=== PATIENT | male | born 1945 | race Caucasian/White ===

== ENCOUNTER 2016-04-23 21:46 | Emergency (ER) | payer SELFPAY ==
[~2016-04-23] VITALS: Ht 190.5 cm; Wt 80.5 kg
--- NOTE | 2016-04-23 22:14 | RAD ---
PROCEDURE CT scan of the head without contrast 04/23/2016 HISTORY Altered mental status with right-sided weakness and aphasia since 9 p.m. TECHNIQUE Unenhanced contiguous, 5 millimeter axial sections were obtained through the head. One or more of the following individualized dose reduction techniques were utilized for this study: 1. Automated exposure control. 2. Adjustment of the mA and/or kV according to patient size. 3. Use of iterative reconstruction technique. FINDINGS There is generalized parenchymal atrophy. No acute parenchymal abnormality is seen. No extra-axial fluid collection is noted. Increased density is seen within the mid/distal left middle cerebral artery (M2/3 segments) when compared to the right within the left sylvian fissure consistent with a hyperdense MCA sign. 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 There is no CT evidence intraparenchymal hemorrhage. No skull fracture is seen. 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 These findings were discussed with Dr. Simon of the emergency department at 2158 hours. Electronically signed by: Logan Jackson MD (Apr 23, 2016 22:12:51)
[2016-04-23 22:39] VITALS: BP 138/78
[2016-04-23 22:48] LABS: BASO % 0 % (0-3); EOS % 1 % (0-3); HEMATOCRIT 41.5 % (39.0-53.0); HEMOGLOBIN 13.8 g/dL (13.0-17.5); LYMPH # 2.4 x10^3/uL (1.0-4.8); LYMPH % 33 % (24-48); MEAN CORPUSCULAR HEMOGLOBIN 31 pg (25-35); MEAN CORPUSCULAR HGB CONC 33 g/dL (31-37); MEAN CORPUSCULAR VOLUME 93 fL (79-100); MONO % 7 % (0-9); NEUT % 59 % (31-73); PLATELET COUNT 178 x10^3/uL (140-400); RED BLOOD COUNT 4.46 x10^6/uL (4.30-5.70); RED CELL DISTRIBUTION WIDTH 12.7 % (11.5-14.5); WHITE BLOOD COUNT 7.5 x10^3/uL (4.0-11.0)
[2016-04-23 22:51] LABS: CALCIUM 9.2 mg/dL (8.5-10.1); GFR 74.3; POTASSIUM 4.3 mmol/L (3.5-5.1)
[2016-04-23 22:57] LABS: ALBUMIN 3.9 g/dL (3.4-5.0); ALBUMIN/GLOBULIN RATIO 1.3 (1.0-1.7); TOTAL BILIRUBIN 1.3 mg/dL (0.2-1.0); TOTAL PROTEIN 6.9 g/dL (6.4-8.2)
[2016-04-23 22:57] LABS: INR 1.3 (0.8-1.1); PROTHROMBIN TIME PATIENT 15.6 SEC (11.7-14.0)
--- NOTE | 2016-04-23 23:24 | PHYS DOC ---
Past Medical History Past Medical History: Hypertension, DC Past Surgical History: Other Additional Past Surgical Histo: HERNIA REPAIR Alcohol Use: Rarely Drug Use: None Adult General Chief Complaint Chief Complaint: NEURO SYMPTOMS/DEFICITS HPI HPI Patient is a 70 year old gentleman who has history significant for recent myocardial infarction and was treated at [facility] for this. According to the the patient had a cardiac catheter performed which revealed a lesion in what appears to be his left anterior descending artery however it with a distal lesion, it was 100% obstructed, and no stent or angioplasty was performed at that time. According to the the patient was sent home on Coumadin and Plavix. Today the patient presents to the ER secondary to an episode of right-sided upper extremity facility with right facial droop but occurred approximately 9 PM. Patient's last known well time was 9 PM. Patient's reports that there was dinnertable and she started having a conversation with him and he was not responding. She reports that she went up to the patient he was not following any commands. She reports that he was staring off into space and not responding to her verbally or physically. She reports his face had a droop on the right side and his right arm had flopped to the side. She reports that he started to fall over to the right side and he was caught by her and her sister. They called EMS and EMS arrived and brought him to [facility]. Upon arrival to the ER the patient again continued to be alert awake however not responding to external stimuli. Patient was nonverbal and was not following any commands. Patient's neuro exam revealed a an NIH score of 15. Patient had 5 out of 5 strength in his upper and lower extremities and the reports upon arrival to the ER his facial droop resolved completely. Patient does have a history of hypertension. reports no history of diabetes liver longer kidney problems. No history of cancer, strokes, seizures in the past. Patient does not smoke drink or do any drugs. Patient is not allergic to any medications. Patient is on Coumadin Plavix and lisinopril. I received a call from the radiologist reporting that the patient has a thrombus in his left MCA. There was no evidence of stroke or otherwise. We immediately contacted [facility] to transfer for further evaluation by stroke center. I spoke to Dr. Paulino and Dr. Lacey, and they've graciously accepted further care of this patient and agreed to allow transfer to their facility for definitive management and possible thrombolytic therapy. At the time of the conversation was [facility] the patient's labs were not back and the INR was not yet known. Patient's INR the ER after the patient was discharged with 1.3 this was relayed to the nursing team at [facility] by our nurse here. Patient's Accu-Chek was 118. Patient's blood pressure upon arrival was 160/100 by EMS however her blood pressure here was 127/76. Medical care time of 35 minutes were utilized for treatment and management of the patient's acute embolic stroke. Patient has a thrombus in his left MCA. Patient was transferred emergently to [facility] for definitive management of his stroke. Review of Systems Review of Systems History very difficult to obtain secondary to patient non-verbal. Review of systems obtained from . Constitutional: Denies fever or chills [] Eyes: Denies change in visual acuity, redness, or eye pain [] HENT: Denies nasal congestion or sore throat [] Respiratory: Denies cough or shortness of breath [] Cardiovascular: No additional information not addressed in HPI [] GI: Denies abdominal pain, nausea, vomiting, bloody stools or diarrhea [] All other review of systems negative except as documented. Allergies Allergies Allergies Coded Allergies Type Severity Reaction Last Updated Verified No Known Drug Allergies 04/23/16 No Physical Exam Physical Exam Constitutional: Well developed, well nourished, no acute distress, non-toxic appearance. [] HENT: Normocephalic, atraumatic, bilateral external ears normal, oropharynx moist, no oral exudates, nose normal. [] Eyes: PERRLA, EOMI, conjunctiva normal, no discharge. [] Neck: Grossly Normal range of motion, no tenderness, supple, no stridor. [] Cardiovascular:Heart rate regular rhythm Lungs & Thorax: Bilateral breath sounds clear to auscultation [] Abdomen: Bowel sounds normal, soft, no tenderness, no masses, no pulsatile masses. [] Skin: Warm, dry, no erythema, no rash. [] Extremities: No tenderness, no cyanosis, no clubbing, ROM intact, no edema. [] Neurologic: Alert and awake. Full neuro exam limited secondary to patient not responsive to verbal instructions. Patient staring off appears somewhat confused but not verbalizing any complaints of not following any commands. Patient does have 5 out of 5 strength in his upper and lower extremities assessed by resistance. Psychologic: Unable to assess Current Patient Data Vital Signs Vital Signs Date Time Temp Pulse Resp B/P Pulse Ox O2 Delivery O2 Flow Rate FiO2 04/23/16 21:46 97.8 61 16 138/78 100 Room Air 97.8 Lab Values Laboratory Tests Test 04/23/16 22:02 04/23/16 22:30 04/23/16 22:45 Glucose (Fingerstick) 101mg/dL (70-99) H White Blood Count 7.5x10^3/uL (4.0-11.0) Red Blood Count 4.46x10^6/uL (4.30-5.70) Hemoglobin 13.8g/dL (13.0-17.5) Hematocrit 41.5% (39.0-53.0) Mean Corpuscular Volume 93fL (79-100) Mean Corpuscular Hemoglobin 31pg (25-35) Mean Corpuscular Hemoglobin Concent 33g/dL (31-37) Red Cell Distribution Width 12.7% (11.5-14.5) Platelet Count 178x10^3/uL (140-400) Neutrophils (%) (Auto) 59% (31-73) Lymphocytes (%) (Auto) 33% (24-48) Monocytes (%) (Auto) 7% (0-9) Eosinophils (%) (Auto) 1% (0-3) Basophils (%) (Auto) 0% (0-3) Neutrophils # (Auto) 4.4x10^3uL (1.8-7.7) Lymphocytes # (Auto) 2.4x10^3/uL (1.0-4.8) Monocytes # (Auto) 0.5x10^3/uL (0.0-1.1) Eosinophils # (Auto) 0.1x10^3/uL (0.0-0.7) Basophils # (Auto) 0.0x10^3/uL (0.0-0.2) Sodium Level 146mmol/L (136-145) H Potassium Level 4.3mmol/L (3.5-5.1) Chloride Level 107mmol/L (98-107) Carbon Dioxide Level 22mmol/L (21-32) Anion Gap 17 (6-14) H Blood Urea Nitrogen 15mg/dL (8-26) Creatinine 1.0mg/dL (0.7-1.3) Estimated GFR (Cockcroft-Gault) 74.3 BUN/Creatinine Ratio 15 (6-20) Glucose Level 97mg/dL (70-99) Calcium Level 9.2mg/dL (8.5-10.1) Total Bilirubin 1.3mg/dL (0.2-1.0) H Aspartate Amino Transferase (AST) 26U/L (15-37) Alanine Aminotransferase (ALT) 32U/L (16-63) Alkaline Phosphatase 61U/L (46-116) Troponin I Quantitative < 0.017ng/mL (0.000-0.055) Total Protein 6.9g/dL (6.4-8.2) Albumin 3.9g/dL (3.4-5.0) Albumin/Globulin Ratio 1.3 (1.0-1.7) Prothrombin Time 15.6SEC (11.7-14.0) H Prothrombin Time INR 1.3 (0.8-1.1) H Laboratory Tests 04/23/16 22:30 Laboratory Tests 04/23/16 22:30 EKG EKG Normal sinus rhythm. Poor baseline. No evidence of STEMI. [] Radiology/Procedures Radiology/Procedures CT scan of the head reveals a left MCA thrombus [] Course & Med Decision Making Course & Med Decision Making Pertinent Labs and Imaging studies reviewed. (See chart for details) [] Dragon Disclaimer Dragon Disclaimer This electronic medical record was generated, in whole or in part, using a voice recognition dictation system. Departure Departure Impression: Primary Impression: Acute embolic stroke Additional Impressions: Unresponsive Altered mental status Disposition: 05 TRANSFER OTHER Condition: GUARDED Referrals: NO PCP (PCP) Problem Qualifiers NILESH KEITH MD Apr 23, 2016 23:24
--- NOTE | 2016-04-24 06:27 | EKG ---
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1945 Requested By: NILESH KEITH Order Number: [id number] Reading MD: Gurmeet Mishra Measurements Intervals Severance Rate: 64 P: 64 NC: 162 QRS: 66 QRSD: 100 T: 74 QT: 426 QTc: 444 Interpretive Statements SINUS RHYTHM VENTRICULAR PREMATURE COMPLEX(ES) LEFT ATRIAL ABNORMALITY INCOMPLETE RIGHT BUNDLE BRANCH BLOCK QRS(T) CONTOUR ABNORMALITY CONSIDER ANTEROLATERAL MYOCARDIAL DAMAGE ST & T ABNORMALITY, CONSIDER ANTERIOR ISCHEMIA OR LEFT VENTRICULAR STRAIN RI6.01 Unconfirmed report No previous ECG available for comparison Electronically Signed On 04-28-2016 13:45:05 [employer] by Gurmeet Mishra
--- NOTE | 2016-04-24 07:28 | RAD ---
Exam performed: One view chest. Indication: cva, stroke protocol Date of Service: 04/24/2016 12:18 AM Comparison: Not available. Single AP upright portable view chest findings: Cardiomediastinal silhouette is within limits of normal. No acute infiltrates, effusion or pneumothorax is detected. The bony structures are normal. Impression: No acute cardiopulmonary process is detected.
== END 2016-04-23 22:48 | disposition short-term general hospital (02) ==
LOC: ER 21:46
DX: I63.10 Cerebral infarction due to embolism of unspecified precerebral artery (principal); R29.810 Facial weakness; I10 Essential (primary) hypertension; R41.82 Altered mental status, unspecified; R40.20 Unspecified coma; I25.2 Old myocardial infarction
CPT/HCPCS: 36415; 70450; 71010; 80053; 82947; 84484; 85027; 85610; 93005; 99285; 99291-25